=== PATIENT | female | born 1995 | race Caucasian/White ===

== ENCOUNTER 2016-12-28 10:57 | Emergency (ER) | payer OTHER ==
[~2016-12-28] VITALS: Ht 162.6 cm; Wt 65.0 kg
[2016-12-28 11:00] VITALS: BP 127/68; PULSE 82; RESP 16; TEMP 98.5; O2SAT 99
[2016-12-28] MEDS ORDERED: BUPR150CR PO ×2 (11:19→11:41)
[2016-12-28] MEDS ORDERED: SERO200T PO ×2 (11:19→11:41)
[2016-12-28] MEDS ORDERED: GABA100C4 PO (11:19)
--- NOTE | 2016-12-28 11:44 | PD ---
HPI Chief Complaint: Medication Refill Request Time Seen by Provider: 11:40 Travel History International Travel<30 days: No Contact w/Intl Traveler<30days: No Traveled to known affect area: No History of Present Illness HPI This is a 21-year-old female who reports a history of depression and generalized anxiety disorder. She presents requesting medication refill. She recently moved to the area in order to join a sober living facility. She ran out of her Wellbutrin, gabapentin, Seroquel 1 week ago. She is unable to obtain an appointment at [facility] until January. She denies any acute suicidal or homicidal ideation, auditory or visual hallucination. She has no other complaints at this time. [facility] Past Medical History Anxiety: Yes Depression: Yes ?: Not LMP: 12/13/16 Past Surgical History Surgical History: No Previous Surgery Social History Alcohol Use: No (LAST DRINK 10/30/16) Tobacco Use: Yes (/ PPD) Substance Use: No Allergies-Medications (Allergen,Severity, Reaction): Coded Allergies: No Known Allergies (Unverified , 12/28/16) Reported Meds & Prescriptions Reported Meds & Active Scripts Active Seroquel (Quetiapine Fumarate) 200 Mg Tab 200 Mg PO DAILY 30 Days Wellbutrin SR 12 HR (Bupropion HCl) 150 Mg Tab 150 Mg PO Q12HR 30 Days Reported Seroquel (Quetiapine Fumarate) 200 Mg Tab 200 Mg PO HS Wellbutrin SR 12 HR (Bupropion HCl) 150 Mg Tab 150 Mg PO Q12HR Gabapentin 100 Mg Cap 200 Mg PO TID Review of Systems Except as stated in HPI: all other systems reviewed are Neg Physical Exam Narrative GENERAL: Well-developed well-nourished female in no acute distress SKIN: Warm and dry. HEAD: Atraumatic. Normocephalic. EYES: Pupils equal and round. No scleral icterus. No injection or drainage. ENT: No nasal bleeding or discharge. Mucous membranes pink and moist. NECK: Trachea midline. No JVD. CARDIOVASCULAR: Regular rate and rhythm. No murmur appreciated. RESPIRATORY: No accessory muscle use. Clear to auscultation. Breath sounds equal bilaterally. GASTROINTESTINAL: Abdomen soft, non-tender, nondistended. Hepatic and splenic margins not palpable. MUSCULOSKELETAL: No obvious deformities. No clubbing. No cyanosis. No edema. NEUROLOGICAL: Awake and alert. No obvious cranial nerve deficits. Motor grossly within normal limits. Normal speech. PSYCHIATRIC: Appropriate mood and affect; insight and judgment normal. Data Data Last Documented VS Vital Signs Date Time Temp Pulse Resp B/P (MAP) Pulse Ox O2 Delivery O2 Flow Rate FiO2 12/28/16 11:00 98.5 82 16 127/68 (87) 99 MDM Medical Decision Making Medical Screen Exam Complete: Yes Emergency Medical Condition: Yes Medical Record Reviewed: Yes Differential Diagnosis Medication refill, MDD, generalized anxiety disorder Narrative Course The patient will be given a one-month supply of her Wellbutrin and Seroquel. She is stable for discharge. Diagnosis Primary Impression: Medication refill Additional Instructions: Follow-up with your psychiatrist as scheduled and return for any emergent medical conditions. Med/Other Pt SpecificInfo: Prescription(s) given Scripts Quetiapine (Seroquel) 200 Mg Tab 200 MG PO DAILY for 30 Days, #30 TAB 0 Refills Prov: Racquel Cisneros MD 12/28/16 Bupropion HCl ER 12 HR (Wellbutrin SR 12 HR) 150 Mg Tab 150 MG PO Q12HR for Control Depression for 30 Days, TAB 0 Refills Prov: Racquel Cisneros MD 12/28/16 Disposition: 01 DISCHARGE HOME Condition: Stable Milton Deleon Dec 28, 2016 11:44
== END 2016-12-28 11:56 | disposition home or self-care (01) ==
LOC: PHEFT 10:57
DX: Z76.0 Encounter for issue of repeat prescription (principal); Z86.59 Personal history of other mental and behavioral disorders; F17.200 Nicotine dependence, unspecified, uncomplicated
CPT/HCPCS: 99281

== ENCOUNTER 2017-08-05 16:23 | Emergency (ER) | payer OTHER ==
[2017-08-05 17:59] LABS: AUTOMATED NEUTROPHIL # 5.4 TH/MM3 (1.8-7.7); BASOPHIL % 0.6 % (0.0-2.0); EOSINOPHIL # 0.1 TH/MM3 (0-0.4); EOSINOPHIL % 1.1 % (0.0-4.0); HEMATOCRIT 45.4 % (35.0-46.0); HEMO FLAGS DIFF FINAL; HEMOGLOBIN 15.2 GM/DL (11.6-15.3); LYMPH % 25.9 % (9.0-44.0); MEAN CELL VOLUME 92.9 FL (80.0-100.0); MEAN CORPUSCULAR HGB CONC 33.4 % (32.0-36.0); MEAN PLATELET VOLUME 9.4 FL (7.0-11.0); MONO % 4.5 % (0.0-8.0); MONOCYTE # 0.4 TH/MM3 (0-0.9); NEUT % 67.9 % (16.0-70.0); PLATELET COUNT 308 TH/MM3 (150-450); RED BLOOD COUNT 4.89 MIL/MM3 (4.00-5.30); RED CELL DISTRIBUTION WIDTH 12.9 % (11.6-17.2); WHITE BLOOD COUNT 7.9 TH/MM3 (4.0-11.0)
[2017-08-05 18:10] LABS: AMPHETAMINE, URINE NEG (NEG); BARBITURATES, URINE NEG (NEG); BENZODIAZEPINE,URINE NEG (NEG); CANNABINOIDS, URINE NEG (NEG); COCAINE, URINE NEG (NEG)
[2017-08-05 18:12] LABS: BACTERIA, URINE FEW /hpf; BILIRUBIN, URINE NEG (NEG); BLOOD, URINE SMALL (NEG); COMMENT (UR) CULT NOT INDICATED; CULTURE IF INDICATED CULT NOT INDICATED; GLUCOSE,URINE NEG (NEG); KETONE, URINE NEG (NEG); NITRITE,URINE NEG (NEG); SQUAMOUS EPITHELIAL CELL URINE 29 /hpf (0-5); URINE COLOR LIGHT-YELLOW (YELLW/STRAW); URINE LEUKOCYTE ESTERASE NEG (NEG)
[2017-08-05 18:18] LABS: ALBUMIN 4.1 GM/DL (3.4-5.0); ANION GAP 13 MEQ/L (5-15); AST (GOT) 31 U/L (15-37); BLOOD UREA NITROGEN 13 MG/DL (7-18); CALCIUM 8.7 MG/DL (8.5-10.1); CHLORIDE 106 MEQ/L (98-107); CREATININE 0.63 MG/DL (0.50-1.00); GLOMERULAR FILTRATION RATE 116 ML/MIN (>89); GLUCOSE,RANDOM 87 MG/DL (74-106); POTASSIUM 4.1 MEQ/L (3.5-5.1); SODIUM (NA) 142 MEQ/L (136-145)
[2017-08-05 18:18] LABS: SALICYLATES LESS THAN 1.7 MG/DL (2.8-20.0)
[2017-08-05 18:19] LABS: ALT (GPT) 31 U/L (10-53)
[2017-08-05 18:29] LABS: ALKALINE PHOSPHATASE 72 U/L (45-117); TOTAL BILIRUBIN ADULT 0.1 MG/DL (0.2-1.0)
[2017-08-05 18:35] LABS: ACETAMINOPHEN LESS THAN 2.0 MCG/ML (10.0-30.0); ALCOHOL 300 MG/DL (0-5)
[2017-08-06] MEDS ORDERED: LORazepam 2 MG TAB PO (02:00)
[2017-08-06] MEDS ORDERED: LORazepam 1 MG TAB PO (02:00)
[2017-08-06] MEDS ORDERED: LORazepam 2 MG/ML VIAL IV PUSH ×4 (02:00)
[2017-08-06] MEDS: LORazepam 1 MG TAB PO (02:00)
[2017-08-06] MEDS ORDERED: FLUMAZENIL 0.5 MG/5 ML VIAL IV PUSH (02:00)
[2017-08-06] MEDS: IBUPROFEN 800 MG TAB PO (10:26)
== END 2017-08-06 16:36 | disposition home or self-care (01) ==
LOC: NEPJ 08-06 16:36 → NEDAMB 16:23
DX: F19.94 Other psychoactive substance use, unspecified with psychoactive substance-induced mood disorder (principal); F10.94 Alcohol use, unspecified with alcohol-induced mood disorder; F17.210 Nicotine dependence, cigarettes, uncomplicated; F31.9 Bipolar disorder, unspecified; Y90.8 Blood alcohol level of 240 mg/100 ml or more; Z79.899 Other long term (current) drug therapy
CPT/HCPCS: 80053; 80307; 81001; 84443; 84703; 85025; 99283